=== PATIENT | male | born 1990 | race African-American/Black ===

== ENCOUNTER 2017-11-09 10:17 | Emergency (ER) | payer SELFPAY | END 2017-11-09 11:04 | disposition home or self-care (01) | LOC: SCSER 10:17 | DX: J11.1 Influenza due to unidentified influenza virus with other respiratory manifestations (principal) | CPT/HCPCS: 99283 ==

== ENCOUNTER 2018-09-12 10:44 | Emergency (ER) | payer SELFPAY ==
--- NOTE | 2018-09-12 12:16 | RAD ---
CHEST 2 VIEWS: HISTORY: Cough. COMPARISON: 07/02/2004 study. FINDINGS: Heart size and mediastinum are within normal limits. The lungs are clear of infiltrates. No signifi cant bony findings. IMPRESSION: No active intrathoracic disease. POS: [facility]
== END 2018-09-12 11:30 | disposition home or self-care (01) ==
LOC: SCSER 10:44
DX: J20.9 Acute bronchitis, unspecified (principal)
CPT/HCPCS: 71046